=== PATIENT | male | born 1955 | race Caucasian/White ===

== ENCOUNTER 2024-10-05 09:49 | Outpatient (CLI) | payer MEDICARE, SELFPAY ==
--- NOTE | ~2024-10-05 | US_ITS ---
Limited Abdominal Sonogram: Real-time sonographic imaging of the right upper quadrant was performed. Clinical History: Abnormal liver enzymes Findings: The liver appears echogenic, with no evidence of mass lesion or bile duct dilatation. Main portal vein demonstrates normal direction of flow. The gallbladder is well distended, and appears no rmal with no evidence of gallstone or wall thickening. The common bile duct measures 5 mm. The visua lized pancreas, aorta, and IVC are unremarkable. Impression: Diffuse fatty infiltration of the liver. Reviewed, dictated and finalized at location M. DESIGNER Impression: Diffuse fatty infiltration of the liver.
--- OUTSIDE RECORDS SUMMARY | 2024-10-05 10:15 | XMS_ITS | Clinical Summary ---
Author Organization [facility] Address [address] [place] [id number] Care Team Providers Care Outsole Leveler Name Role Phone Lucas Hester DO Primary Care Provider + Allergies Active Allergy Reactions Criticality Noted Date Comments Penicillins Unknown 10/24/2020 Medications aspirin EC (ECOTRIN) 81 MG tablet Take 1 tablet (81 mg total) by mouth every other day. Active Multiple Vitamin (MULTIVITAMIN ADULT OR) Active triamcinolone 0.1 % creamIndications:E czema, unspecified type Apply topically 2 (two) times daily. 45 g 2 Active rosuvastatin (CRESTOR) 10 MG tabletIndications: Hyperlipidemia, unspecified hyperlipidemia type TAKE 1 TABLET(10 MG) BY MOUTH DAILY 90 tablet 1 4 Active metoprolol succinate ER (TOPROL-XL) 100 MG 24 hr tabletIndications: Essential hypertension TAKE 1 TABLET(100 MG) BY MOUTH DAILY 90 tablet 4 Active amLODIPine (NORVASC) 10 MG tabletIndications: Essential hypertension TAKE 1 TABLET(10 MG) BY MOUTH DAILY 90 tablet 4 Active Active Problems Problem Noted Date Diagnosed Date Morbid obesity due to excess calories (CMS/HCC H HS/HCC) 11/29/2023 Prediabetes 05/28/2023 Essential hypertension 11/17/2021 Hyperlipidemia, unspecified hyperlipidemia type 11/17/2021 Encounters Date Type Department Care Team Description 09/08/2024 Telephone [facility] Family & Internal Medicine [address] [phone] Lucas Hester, DO Results 08/08/2024 Telephone [facility] Internal [address] [phone] Lucas Hester, DO Lab Results 07/17/2024 Telephone [facility] Internal [address] [phone] Lucas Hester, DO Lab Order from Last 3 Months Immunizations Name Administration Dates Next Due Flucelvax 6 Months+ (Prefilled Syringe) 04/30/20,05/23/2018 Fluzone High Dose (IIV, trivalent, 0.5mL) 2023 Influenza (Generic) 05/20/2020,05/18/2017 Shingrix 08/02/2020,05/31/2020 Tdap (Boostrix) 04/30/2019 Family History Medical History Relation Comments Alzheimers Father Breast Cancer Mother COPD Mother Osteoporosis Mother Relation Status Comments Father Mother Social History Tobacco Use Types Packs/Day Years Used Date Smoking Tobacco: Former Cigarettes 3 15 1 970 - 08/16/1984 Passive Smoke Exposure: Current Smokeless Tobacco: Former Chew Quit: 10/24/2013 Tobacco Cessation:Counseling Given: No Passive Exposure Comments:past also. smokes outside. Alcohol Use Standard Drinks/Week Comments Yes 1.7 (1 standard drink = 0.6 oz p ure alcohol) AUDIT-C Answer Date Recorded Q1: How often do you have a drink containing alc ohol? 2-4 times a month 10/24/2020 Q2: How many drinks containi ng alcohol do you have on a typical day when you are drinking? 3 or 4 10/24/2020 Q3: How often do you have si x or more drinks on one occasion? 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 Gender Identity Not on file Sexual Orientation Not on file Occupation Industry Job Start Date Job End Date Not on file Not on file Not on file Not on file Last Filed Vital Signs Vital Sign Reading Time Taken Comments Blood Pressure 114/80 06/07/2024 8:03 AM CDT Pulse 76 06/07/2024 8:03 AM CDT Temperature 36.8 C (98.2 F) 06/07/2024 8:03 AM CDT Respiratory Rate 16 06/07/2024 8:03 AM CDT Oxygen Saturation 97% 06/07/2024 8:03 AM CDT Inhaled Oxygen Concentration - - Weight 107.7 kg (237 lb 6.4 oz) 06/07/2024 8:03 AM CDT Height 167.6 cm (5' 6 ) 06/07/2024 8:03 AM CDT Body Mass Index 38.32 06/07/2024 8:03 AM CDT Plan of Treatment Upcoming Encounters Date Type Department Care Team (Late st Contact Info) Description 12/11/2024 8:40 AM CDT Office Visit [facility] Family & Internal Medicine [address] [phone] Lucas Hester, [address] [place] [id number] Health Maintenance Due Date Last Done Comments AAA SCREENING 2021 Annual Medicare Wellness Visit 2021 PHQ-2 (Physician [place]) 08/16/2024 11/29/2023 Pneumococcal Vaccine: 65+ Years (1 of 1 - PCV) 11/14/2024 Postponed from 2021 (Patient Refused) Colorectal Cancer Screening FIT-DNA (3 Years) 01/13/2025 01/13/2022, 01/13/2022, 06/20/2018 COVID-19 Vaccine (1 - 2023- season) 2025 Postponed from 04/16/2024 (Patient Refused) DTaP, Tdap and Td Vaccines (2 - Td or Tdap) 10/24/2029 04/30/2019 Postponed from 04/30/2029 (Per Provider Recommendation) RSV Immunization or 60+ Years (1 - 1-dose 75+ series) 2031 Zoster Vaccines Completed 08/02/2020, 05/31/2020 Hepatitis C Completed 05/13/2022 Influenza Adult Completed 06/07/2024, 10/0 12/2019, 04/30/2019, Additional history exists Meningococcal B Vaccine Aged Out No l onger eligible based on patient's age to complete this topic Meningococcal Vaccine Aged Out No winsome santiago eligible based on patient's age to complete this topic RSV Immunizations Under 20 Months Aged Out No longer eligible based on patient's age to complete this topic Procedures Procedure Name Priority Date/Time Associated Diagnosis Comments HEPATIC FUNCTION PANEL Routine 08/29/2024 9:01 AM GRAIN ELEVATOR CLERK Elevated liver enzymes HEPATIC FUNCTION PANEL Routine 08/07/2024 8:52 AM GRAIN ELEVATOR CLERK Elevated liver enzymes HEPATITIS C ANTIBODY Routine 05/13/2022 7:44 AM CDT Annual physical exam Need for hepatitis C screening test COLOGUARD (EXACT SCIENCE) Routine 01/13/2022 10:00 AM CDT Annual physical exam Screening for malignant neoplasm of colon from Last 3 Months or Most Recently Relevant to Health Maintenance Results * (ABNORMAL) HEPATIC FUNCTION PANEL (08/29/2024 9:01 AM GRAIN ELEVATOR CLERK) Only the most recent of2 resultswithin the time period is included. TOTAL PROTEIN S/P/B 6.9 6.1 - 8.1 g/dL [place] ALBUMIN S/P/B 4.4 3.6 - 5.1 g/dL [place] GLOBULIN 2.5 1.9 - 3.7 g/dL (calc) [place] ALBUMIN/GLOBULIN RATIO 1.8 1.0 - 2.5 (calc) [place] BILIRUBIN TOTAL S/P/B 0.5 0.2 - 1.2 mg/dL [place] BILIRUBIN DIRECT S/P/B 0.1 < OR = 0.2 mg/dL [place] BILIRUBIN INDIRECT S/P/B 0.4 0.2 - 1.2 mg/dL (calc) [place] ALKALINE PHOSPHATASE S/P/B 84 35 - 144 U/L [facility] AST 27 10 - 35 U/L [facility] [place] ALT 52(H) 9 - 46 U/L [facility] [place] 08/29/2024 9:01 AM GRAIN ELEVATOR CLERK 08/29/2024 9:02 AM GRAIN ELEVATOR CLERK Narrative Resulting Agency Comment Performing Organization Information: Site ID: Name: [employer] [facility] Address: [address] [place] [address] Director: Shakeel Welch Lucas Hester DO LABORATORY Final Re sult Performing Organization Address City/[facility]/ZIP Co de Phone Number [facility] [id number] [place] [phone], * HEPATITIS C ANTIBODY (05/13/2022 7:44 AM CDT) Pathologist [facility] HEPATITIS C AB NON-REACTI VE NON-REACT ISAIAH 05/14/2022 1:22 PM CDT [facility] Comment: ANTIBODIES TO HCV NOT DETECTED. DOES NOT EXCLUDE THE POSSIBILITY OF EXPOSURE TO HCV. 05/13/2022 7:44 AM CDT Lucas Hester DO LABORATORY Final Re sult Performing Organization Address City/[facility]/ZIP Co de Phone Number [facility] [address] [place] [address], [phone] * COLOGUARD (EXACT SCIENCE) (01/13/2022 10:00 AM CDT) COLOGUARD RESULT Negative Negative CO-Value (CLIA #:[id number]) Comment: NEGATIVE TEST RESULT. A negative Cologuard result indicates a low likelihood that a colorectal cancer (CRC) or advanced adenoma (adenomatous polyps with more advanced pre-malignant features) is present. The chance that a person with a negative Cologuard test has a colorectal cancer is less than 1 in 1500 (negative predictive value >99.9%) or has an advanced adenoma is less than 5.3% (negative predictive value 94.7%). These data are based on a prospective cross-sectional study of 10,000 individuals at average risk for colorectal cancer who were screened with both Cologuard and colonoscopy. (Franky Frances al, N Engl J Med 2014;370(27):2906-2443) The normal value (reference range) for this assay is negative. COLOGUARD RE-SCREENING RECOMMENDATION: Periodic colorectal cancer screening is an important part of preventive healthcare for asymptomatic individuals at average risk for colorectal cancer. Following a negative Cologuard result, the [place] Cancer Society and U.S. Multi-Society Task Force screening guidelines recommend a Cologuard re-screening interval of 3 years. References: [place] [employer] Guideline for Colorectal Cancer Screening: https://www.cancer.org/cancer/faych-lwtjnb-ysbccc/neowmwpsz-yxwhzazmb-hjhcfug/ac s-rec ommendations.html.; Tom DK, Helen LOTT, Gaetano HermosilloK, Colorectal Cancer Screening: Recommendations for Physicians and Patients from the U.S. Multi-Society Task Force on Colorectal Cancer Screening , Am J Gastroenterology 2017; 112:4144-7932. TEST DESCRIPTION: Composite algorithmic analysis of stool DNA-biomarkers with hemoglobin immunoassay. Quantitative values of individual biomarkers are not reportable and are not associated with individual biomarker result reference ranges. Cologuard is intended for colorectal cancer screening of adults of either sex, 45 years or older, who are at average-risk for colorectal cancer (CRC). Cologuard has been approved for use by the U.S. FDA. The performance of Cologuard was established in a cross sectional study of average-risk adults aged 50-84. Cologuard performance in patients ages 45 to 49 years was estimated by sub-group analysis of near-age groups. Colonoscopies performed for a positive result may find as the most clinically significant lesion: colorectal cancer [4.0%], advanced adenoma (including sessile serrated polyps greater than or equal to 1cm diameter) [20%] or non- advanced adenoma [31%]; or no colorectal neoplasia [45%]. These estimates are derived from a prospective cross-sectional screening study of 10,000 individuals at average risk for colorectal cancer who were screened with both Cologuard and colonoscopy. (Franky Layne, N Engl J Med 2014;370(14):1577-1541.) Cologuard may produce a false negative or false positive result (no colorectal cancer or precancerous polyp present at colonoscopy follow up). A negative Cologuard test result does not guarantee the absence of CRC or advanced adenoma (pre-cancer). The current Cologuard screening interval is every 3 years. ([place] [employer] Society and U.S. Multi-Society Task Force). Cologuard performance data in a 10,000 patient pivotal study using colonoscopy as the reference method can be accessed at the following location: www.[employer]/results. Additional description of the Cologuard test process, warnings and precautions can be found at www.cologuard.com. STOOL STOOL SPECIMEN / Unknown 01/13/2022 10:00 AM CDT 01/14/2022 9:47 AM CDT us Lucas Hester DO BODY FLUIDS AND STOOLS O RDERABLES Final Result Performing Organization Address City/State/[facility] Co de Phone Number [facility] ([email or web address] [facility]) [address] [email or web address] [address], [employer] (CLIA #:[id number]) [address] [email or web address] [address] from Last 3 Months or Most Recently Relevant to Health Maintenance Insurance Care Teams Outsole Leveler Relationship Specialty Start Date End Date Lucas Hester DO [address] [place] [address] PCP - General FAMILY PRACTICE 10/24/20
== END 2024-10-05 09:50 | disposition home or self-care (01) ==
LOC: ANHIMG 09:59
PROVIDERS: PCP Student in an Organized Health Care Education/Training Program; Visit Provider Student in an Organized Health Care Education/Training Program
DX: R74.8 Abnormal levels of other serum enzymes (principal); K76.0 Fatty (change of) liver, not elsewhere classified
CPT/HCPCS: 76705